=== PATIENT | male | born 2000 | race Hispanic/Latino ===

== ENCOUNTER 2018-10-25 14:30 | Emergency (ER) | payer BC ==
[2018-10-25] MEDS ORDERED: KETOROLAC 30 MG/ML INJ ONE (15:17)
[2018-10-25] MEDS ORDERED: DICYCLOMINE HCL 10 MG CAP ONE (15:17)
--- NOTE | 2018-10-25 16:04 | RAD REPORT ---
EXAM DESCRIPTION: RAD - Chest Pa And Lat (2 Views) - 10/25/2018 3:57 pm CLINICAL HISTORY: PAIN Chest pain. COMPARISON: No comparisons FINDINGS: The lungs are clear. The heart is normal in size. No displaced fractures. IMPRESSION: No acute or concerning finding suspected.
[2018-10-25 16:08] LABS: Urine Blood 1+ (NEG); Urine Glucose NEGATIVE (NEG)
--- NOTE | 2018-10-25 16:12 | ER ---
Nurse's Notes [facility] Name: Hans Munoz Age: 18 yrs Sex: Male : 2000 Arrival Date: 10/25/2018 Time: 14:34 Bed 27 Private MD: Diagnosis: Upper abdominal pain, unspecified;Muscle spasm Presentation: 10/25 14:45 Presenting complaint: Patient states: LLQ pian X 5 days, intermittent sharp stabbing iw pain, denies n/v/d, denies fever, denies urinary s/s. Transition of care: patient was not received from another setting of care. Onset of symptoms was October 20, 2018. Risk Assessment: Do you want to hurt yourself or someone else? Patient reports no desire to harm self or others. Initial Sepsis Screen: Does the patient meet any 2 criteria? No. Patient's initial sepsis screen is negative. Does the patient have a suspected source of infection? No. Patient's initial sepsis screen is negative. Care prior to arrival: None. 14:45 Method Of Arrival: Ambulatory iw 14:45 Acuity: LEX 3 iw Historical: - Allergies: 14:47 No Known Allergies; iw - Home Meds: 14:47 None [Active]; iw - PMHx: 14:47 None; iw - PSHx: 14:47 None; iw - Immunization history:: Adult Immunizations up to date. - Social history:: Smoking status: Patient/guardian denies using tobacco. - Ebola Screening: : Patient negative for fever greater than or equal to 101.5 degrees Fahrenheit, and additional compatible Ebola Virus Disease symptoms Patient denies exposure to infectious person Patient denies travel to an Ebola-affected area in the 21 days before illness onset No symptoms or risks identified at this time. Screenin:23 Abuse screen: Denies threats or abuse. Nutritional screening: No deficits noted. tw2 Tuberculosis screening: No symptoms or risk factors identified. Fall Risk None identified. Assessment: 15:28 General: Appears in no apparent distress. comfortable, Behavior is calm, cooperative. rv Pain: Complains of pain in left upper quadrant. Neuro: Level of Consciousness is awake, alert, obeys commands, Oriented to person, place, time, situation. Cardiovascular: Patient's skin is warm and dry. Respiratory: Airway is patent. GI: Bowel sounds present X 4 quads. Abdomen is tender to palpation in left upper quadrant. : No signs and/or symptoms were reported regarding the genitourinary system. EENT: No signs and/or symptoms were reported regarding the EENT system. Derm: Skin is intact. Musculoskeletal: No signs and/or symptoms reported regarding the musculoskeletal system. Vital Signs: 14:48 BP 104 / 66; Pulse 77; Resp 16; Temp 98.2; Pulse Ox 100% ; Weight 72.57 kg; Height 5 iw ft. 10 in. (177.80 cm); Pain 8/10; 16:26 BP 112 / 68; Pulse 71; Resp 16; Temp 98; Pulse Ox 99% on R/A; rv 14:48 Body Mass Index 22.96 (72.57 kg, 177.80 cm) iw ED Course: 14:34 Patient arrived in ED. mr 14:42 Bed in low position. Call light in reach. Adult w/ patient. tw2 14:47 Triage completed. iw 14:50 Arm band placed on. iw 14:57 Mary Jane Baker [facility]-C [facility]. snw 14:57 Jean Bradley MD is Attending Physician. snw 15:28 Amandeep Ellison RN is Primary Nurse. rv 16:26 No provider procedures requiring assistance completed. Patient did not have IV access rv during this emergency room visit. Administered Medications: 15:20 Drug: TORadol 30 mg Route: IM; Site: right deltoid; tw2 16:27 Follow up: Response: Pain is decreased rv 15:21 Drug: Bentyl 20 mg Route: PO; tw2 16:27 Follow up: Response: No adverse reaction; Pain is decreased rv Outcome: 16:08 Discharge ordered by . snw 16:26 Discharged to home ambulatory. rv 16:26 Condition: good 16:26 Discharge instructions given to patient, Instructed on discharge instructions, follow up and referral plans. medication usage, Demonstrated understanding of instructions, follow-up care, medications, Prescriptions given X 2. 16:27 Patient left the ED. rv Signatures: Mary Jane Baker FNP-C FNP-Myriam Kaley Sims Gillian Carpio RN RN iw Kinsey Reyna RN RN tw2 Amandeep Ellison RN RN rv
--- NOTE | 2018-10-25 16:13 | EDPHYS ---
Physician Documentation [facility] Name: Hans Munoz Age: 18 yrs Sex: Male : 2000 Arrival Date: 10/25/2018 Time: 14:34 Bed 27 Private MD: ED Physician Jean Bradley HPI: 10/25 15:23 This 18 yrs old Male presents to ER via Ambulatory with complaints of snw Abdominal Pain. 15:23 The patient presents with abdominal pain in the left upper quadrant. Onset: The snw symptoms/episode began/occurred gradually, 7 day(s) ago, and became worse and became persistent. The symptoms do not radiate. Associated signs and symptoms: Pertinent negatives: nausea, vomiting, and diarrhea, blood in stools, chest pain. The symptoms are described as crampy, shooting. Severity of pain: At its worst the pain was moderate severe. The patient has not experienced similar symptoms in the past. The patient has not recently seen a physician. Historical: - Allergies: 14:47 No Known Allergies; iw - Home Meds: 14:47 None [Active]; iw - PMHx: 14:47 None; iw - PSHx: 14:47 None; iw - Immunization history:: Adult Immunizations up to date. - Social history:: Smoking status: Patient/guardian denies using tobacco. - Ebola Screening: : Patient negative for fever greater than or equal to 101.5 degrees Fahrenheit, and additional compatible Ebola Virus Disease symptoms Patient denies exposure to infectious person Patient denies travel to an Ebola-affected area in the 21 days before illness onset No symptoms or risks identified at this time. ROS: 15:22 Constitutional: Negative for fever, chills, and weight loss, Eyes: Negative for injury, snw pain, redness, and discharge, ENT: Negative for injury, pain, and discharge, Neck: Negative for injury, pain, and swelling, Cardiovascular: Negative for chest pain, palpitations, and edema, Respiratory: Negative for shortness of breath, cough, wheezing, and pleuritic chest pain, Back: Negative for injury and pain, : Negative for injury, bleeding, discharge, and swelling, MS/Extremity: Negative for injury and deformity, Skin: Negative for injury, rash, and discoloration, Neuro: Negative for headache, weakness, numbness, tingling, and seizure, Psych: Negative for depression, anxiety, suicide ideation, homicidal ideation, and hallucinations. 15:22 Abdomen/GI: Positive for abdominal pain, of the left upper quadrant, Negative for nausea, vomiting, and diarrhea, abdominal distension, anorexia, dysphagia. Exam: 15:15 Constitutional: This is a well developed, well nourished patient who is awake, alert, snw and in no acute distress. Head/Face: Normocephalic, atraumatic. Eyes: Pupils equal round and reactive to light, extra-ocular motions intact. Lids and lashes normal. Conjunctiva and sclera are non-icteric and not injected. Cornea within normal limits. Periorbital areas with no swelling, redness, or edema. ENT: Nares patent. No nasal discharge, no septal abnormalities noted. Tympanic membranes are normal and external auditory canals are clear. Oropharynx with no redness, swelling, or masses, exudates, or evidence of obstruction, uvula midline. Mucous membranes moist. Neck: Trachea midline, no thyromegaly or masses palpated, and no cervical lymphadenopathy. Supple, full range of motion without nuchal rigidity, or vertebral point tenderness. No Meningismus. Chest/axilla: Normal chest wall appearance and motion. Nontender with no deformity. No lesions are appreciated. Cardiovascular: Regular rate and rhythm with a normal S1 and S2. No gallops, murmurs, or rubs. Normal PMI, no JVD. No pulse deficits. Respiratory: Lungs have equal breath sounds bilaterally, clear to auscultation and percussion. No rales, rhonchi or wheezes noted. No increased work of breathing, no retractions or nasal flaring. Back: No spinal tenderness. No costovertebral tenderness. Full range of motion. Skin: Warm, dry with normal turgor. Normal color with no rashes, no lesions, and no evidence of cellulitis. MS/ Extremity: Pulses equal, no cyanosis. Neurovascular intact. Full, normal range of motion. Neuro: Awake and alert, GCS 15, oriented to person, place, time, and situation. Cranial nerves II-XII grossly intact. Motor strength 5/5 in all extremities. Sensory grossly intact. Cerebellar exam normal. Normal gait. Psych: Awake, alert, with orientation to person, place and time. Behavior, mood, and affect are within normal limits. 15:15 Abdomen/GI: Inspection: abdomen appears normal, Bowel sounds: normal, Palpation: abdomen is soft and non-tender. 15:15 : Male external genitalia: normal, cremasteric reflex present right, present left, inguinal hernia to right . Vital Signs: 14:48 BP 104 / 66; Pulse 77; Resp 16; Temp 98.2; Pulse Ox 100% ; Weight 72.57 kg; Height 5 iw ft. 10 in. (177.80 cm); Pain 8/10; 16:26 BP 112 / 68; Pulse 71; Resp 16; Temp 98; Pulse Ox 99% on R/A; rv 14:48 Body Mass Index 22.96 (72.57 kg, 177.80 cm) iw MDM: 14:57 Patient medically screened. snw 16:08 Data reviewed: vital signs, nurses notes. Data interpreted: Pulse oximetry: on room air snw is 100 %. Interpretation: normal. Counseling: I had a detailed discussion with the patient and/or guardian regarding: the historical points, exam findings, and any diagnostic results supporting the discharge/admit diagnosis, radiology results, the need for outpatient follow up, to return to the emergency department if symptoms worsen or persist or if there are any questions or concerns that arise at home. Special discussion: Based on the patient's Hx, exam, and Dx evaluation, there is no indication for emergent surgery or inpatient Tx. It is understood by the patient/guardian that if the Sx's persist or worsen they need to return immediately for re-evaluation. Based on the history and exam findings, there is no indication for further emergent testing or inpatient evaluation. I discussed with the patient/guardian the need to see the primary care provider for further evaluation of the symptoms. 10/25 15:11 Order name: Urine Dipstick--Ancillary (enter results); Complete Time: 16:20 bd 10/25 15:15 Order name: Chest Pa And Lat (2 Views) XRAY snw 10/25 15:15 Order name: EKG; Complete Time: 15:16 snw 10/25 15:15 Order name: EKG - Nurse/Tech; Complete Time: 15:15 snw Administered Medications: 15:20 Drug: TORadol 30 mg Route: IM; Site: right deltoid; tw2 16:27 Follow up: Response: Pain is decreased rv 15:21 Drug: Bentyl 20 mg Route: PO; tw2 16:27 Follow up: Response: No adverse reaction; Pain is decreased rv Disposition: 16:54 Co-signature as Attending Physician, Jean Bradley MD. rn Disposition: 10/25/18 16:08 Discharged to Home. Impression: Upper abdominal pain, unspecified, Muscle spasm. - Condition is Stable. - Discharge Instructions: Abdominal Pain, Adult, Muscle Cramps and Spasms, Muscle Strain, Heat Therapy. - Prescriptions for Bentyl 20 mg Oral Tablet - take 1 tablet by ORAL route every 6 hours As needed; 20 tablet. Diclofenac Sodium 75 mg Oral Tablet Sustained Release - take 1 tablet by ORAL route 2 times per day; 30 tablet. - Work release form, Medication Reconciliation Form, Thank You Letter, Antibiotic Education, Prescription Opioid Use form. - Follow up: Private Physician; When: 2 - 3 days; Reason: Recheck today's complaints, Continuance of care, Re-evaluation by your physician. Follow up: Emergency Department; When: As needed; Reason: Worsening of condition. Signatures: Dispatcher [employer] EDMS Mary Jane Baker, MEDICAL CARE ADMINISTRATOR-C MEDICAL CARE ADMINISTRATOR-Csnw Gillian Carpio RN RN iw Jean Bradley MD MD rn Wise, Tara, RN RN tw2 Amandeep Ellison RN RN rv Corrections: (The following items were deleted from the chart) 16:27 16:08 10/25/2018 16:08 Discharged to Home. Impression: Upper abdominal pain, rv unspecified; Muscle spasm. Condition is Stable. Discharge Instructions: Abdominal Pain, Adult, Muscle Cramps and Spasms, Muscle Strain, Heat Therapy. Prescriptions for Bentyl 20 mg Oral Tablet - take 1 tablet by ORAL route every 6 hours As needed; 20 tablet, Diclofenac Sodium 75 mg Oral Tablet Sustained Release - take 1 tablet by ORAL route 2 times per day; 30 tablet. and Forms are Work release form, Medication Reconciliation Form, Thank You Letter, Antibiotic Education, Prescription Opioid Use. Follow up: Private Physician; When: 2 - 3 days; Reason: Recheck today's complaints, Continuance of care, Re-evaluation by your physician. Follow up: Emergency Department; When: As needed; Reason: Worsening of condition. snw
[2018-10-25 16:14] LABS: Urine Protein NEGATIVE (NEG)
--- NOTE | 2018-10-25 18:24 | EKG ---
Test Date: 2018-10-25 Test Time: 15:14:57 [employer] Supervisor: RV MEASUREMENT RESULTS: Intervals: Rate: 77 WY: 166 QRSD: 94 QT: 352 QTc: 398 [place]: P: 72 WY: 166 QRS: 84 T: 65 INTERPRETIVE STATEMENTS: Normal sinus rhythm Normal ECG Compared to ECG 09/05/2013 13:04:58 No significant changes Electronically Signed On 10-25-18 18:23:31 CDT by Ruslan Leos
== END 2018-10-25 16:27 | disposition home or self-care (01) ==
LOC: ER 14:30
DX: M62.838 Other muscle spasm (principal)
CPT/HCPCS: 71046; 81003; 93005; 96372; 99283

== ENCOUNTER 2024-10-09 03:51 | Emergency (ER) | payer SELFPAY ==
--- OUTSIDE RECORDS SUMMARY | 2024-10-09 03:54 | XMS REPORT | Continuity of Care Document ---
Author Name Unknown Address [address] [facility] [address] [facility] [address] [place] [address] [facility] Address [address] [facility] [place] [address] Care Team Providers Care Uniformer Name Role Phone Pcp, Patient Does Not Have A Primary Care Physic lucy Doctor Unassigned, Dolores Attending Clinician U navailable 2, Adc Lab Attending Clinician Unavailable Junior Calvert MD Attending Clinician JUNIOR CALVERT Attending Clinician Unavailable Allergies, Adverse Reactions, Alerts Allergy Name Allergy Type Status Severity Reaction(s) Onset Date Inactive Date Treating Clinician Comments Source NO KNOWN ALLERGIE S [facility] Social History Social Habit Start Date Stop Date Quantity Comments Source Exposure to SARS-CoV-2 (event) 2022-02-16 00:00:00 2022-02-26 10:53:00 Not sure [facility] Sex Assigned At 2000 00:00:00 2000 00:00:00 [facility] Smoking Status Start Date Stop Date Source Tobacco smoking consumption unknown [facility] Procedures Procedure Date / Time Performed Performing Clinicia n Source SCANNED LAB RESULTS 2022-03-09 06:01:00 Doctor U nassigned, Dolores [facility] Encounters Start Date/Time End Date/Time Encounter Type Admission Type Attending Clinicians Care Facility Care Department Encounter ID Source 2022-03-09 00:00:00 2022-03-09 00:00:00 Orders Only Doctor Unassigned, Dolores [facility] [id number] [facility] 2022-02-26 11:00:00 2022-02-26 11:15:00 Director Of Environmental Services Visit 2, Adc Junior Cline [facility] [id number] [facility] 2022-02-26 11:00:00 2022-02-26 11:00:00 Outpatient R JUNIOR CALVERT [facility] [id number] [facility]
--- NOTE | 2024-10-09 06:26 | RAD REPORT ---
PROCEDURE: US Scrotum CLINICAL INDICATION: The patient is 24 years old and is Male; Testicular pain. TECHNIQUE: Real-time ultrasound of the scrotum with color Doppler and image documentation. COMPARISON: None. FINDINGS: RIGHT TESTICLE: Both testes demonstrate normal internal blood flow and low resistance waveforms, wi thout evidence of torsion. The right testicle measures 3.1 x 4.4 x 2.7 cm. LEFT TESTICLE: The left testicle measures 2.8 x 3.8 x 2.6 cm. EPIDIDYMIDES: Subcentimeter left epididymal head cysts incidentally noted. Relatively hypervascular appearance of the left epididymis. Right epididymis appears unremark able. SCROTUM: Small bilateral hydroceles. IMPRESSION: 1. Relatively hypervascular appearance of the left epididymis, suggesting left epididymitis. 2. No evidence of testicular torsion. Electronically signed by: Ryan Lucia MD 10/09/2024 06:18 AM CDT RP Due to temporary technical issues with the [employer] (PICA) reporting system, reports are being renetta d by the in-house radiologist without review as a courtesy to ensure prompt reporting the interpreting radiologist is fully responsible for the content of the report. Transcribed Date/Time: 10/09/2024 6:25 AM
--- NOTE | 2024-10-09 06:33 | ER ---
Nurse's Notes [facility] Name: Hans Munoz Age: 24 yrs Sex: Male : 2000 Arrival Date: 10/09/2024 Time: 03:51 Bed 20 Private MD: Diagnosis: Epididymitis Presentation: 10/09 04:03 Chief complaint: Patient states: My left testicle is tender with movement. Coronavirus vc1 screen: Client denies travel out of the [place] in the last 14 days. At this time, the client does not indicate any symptoms associated with coronavirus-19. Ebola Screen: Patient negative for fever greater than or equal to 101.5 degrees Fahrenheit, and additional compatible Ebola Virus Disease symptoms Patient denies exposure to infectious person. Patient denies travel to an Ebola-affected area in the 21 days before illness onset. No symptoms or risks identified at this time. Initial Sepsis Screen: Does the patient meet any 2 criteria? No. Patient's initial sepsis screen is negative. Does the patient have a suspected source of infection? No. Patient's initial sepsis screen is negative. Risk Assessment: Do you want to hurt yourself or someone else? Patient reports no desire to harm self or others. Onset of symptoms was October 09, 2024. 04:03 Method Of Arrival: Ambulatory vc1 04:03 Acuity: LEX 4 vc1 Triage Assessment: 04:07 General: Appears in no apparent distress. uncomfortable, Behavior is calm, cooperative, vc1 appropriate for age. Pain: Complains of pain in left testicle Pain does not radiate. Pain currently is 4 out of 10 on a pain scale. Pain: Quality of pain is described as tender. EENT: No deficits noted. No signs and/or symptoms were reported regarding the EENT system. Neuro: Level of Consciousness is awake, alert, obeys commands, Oriented to person, place, time, situation, Appropriate for age. Cardiovascular: Capillary refill < 3 seconds Patient's skin is warm and dry. Respiratory: Airway is patent Respiratory effort is even, unlabored, Respiratory pattern is regular, symmetrical. GI: No deficits noted. No signs and/or symptoms were reported involving the gastrointestinal system. : No deficits noted. No signs and/or symptoms were reported regarding the genitourinary system. Derm: Skin is intact, is healthy with good turgor, Skin is dry, Skin is normal. Musculoskeletal: Circulation, motion, and sensation intact. Range of motion: intact in all extremities. Historical: - Allergies: 04:06 No Known Allergies; vc1 - Home Meds: 04:06 None [Active]; vc1 - PMHx: 04:06 None; vc1 - PSHx: 04:06 None; vc1 - Immunization history:: Client reports receiving the 2nd dose of the Covid vaccine. - Infectious Disease History:: Denies. - Social history:: Smoking status: Patient denies any tobacco usage or history of. Screenin:09 [facility] ED Fall Risk Assessment (Adult) History of falling in the last 3 months, ss12 including since admission No falls in past 3 months (0 pts) Confusion or Disorientation No (0 pts). [facility] ED Fall Risk Assessment (Adult) Intoxicated or Sedated No (0 pts) Impaired Gait No (0 pts) Mobility Assist Device Used No (0 pt) Altered Elimination Score/Fall Risk Level 0 - 2 = Low Risk Oriented to surroundings, Maintained a safe environment, Educated pt \T\ family on fall prevention, incl call for assistance when getting out of bed, Assessed \T\ reinforced patient's understanding of fall precautions. Abuse screen: Denies threats or abuse. Denies injuries from another. Nutritional screening: No deficits noted. Tuberculosis screening: No symptoms or risk factors identified. Assessment: 04:10 General: Appears in no apparent distress. comfortable, Behavior is calm, cooperative, ss12 quiet. Pain: Complains of pain in groin and describe as pressure than pain. Neuro: No deficits noted. Level of Consciousness is awake, alert, obeys commands, Oriented to person, place, time, situation. Cardiovascular: No deficits noted. Denies nausea, vomiting. Respiratory: No deficits noted. Airway is patent Respiratory effort is even, unlabored, Respiratory pattern is regular, symmetrical. GI: No deficits noted. No signs and/or symptoms were reported involving the gastrointestinal system. : No deficits noted. No signs and/or symptoms were reported regarding the genitourinary system. EENT: No deficits noted. No signs and/or symptoms were reported regarding the EENT system. Derm: No deficits noted. No signs and/or symptoms reported regarding the dermatologic system. Skin is intact, Skin is dry, Skin is pink, warm \T\ dry. normal. Musculoskeletal: No deficits noted. No signs and/or symptoms reported regarding the musculoskeletal system. 05:15 Reassessment: Patient appears in no apparent distress at this time. Patient and/or ss12 family updated on plan of care and expected duration. Pain level reassessed. Patient is alert, oriented x 3, equal unlabored respirations, skin warm/dry/pink. 06:06 Reassessment: Patient appears in no apparent distress at this time. Patient and/or ss12 family updated on plan of care and expected duration. Pain level reassessed. Patient is alert, oriented x 3, equal unlabored respirations, skin warm/dry/pink. Vital Signs: 04:03 BP 130 / 84; Pulse 63; Resp 16; Temp 98.9; Pulse Ox 100% ; Weight 90.72 kg; Height 5 vc1 ft. 10 in. ; Pain 4/10; 05:00 BP 115 / 81; Pulse 81; Resp 16 S; Pulse Ox 98% on R/A; ss12 06:00 BP 94 / 55; Pulse 71; Resp 16 S; Pulse Ox 97% on R/A; ss12 04:03 Body Mass Index 28.70 (90.72 kg, 177.8 cm) vc1 04:03 Pain Scale: Adult vc1 ED Course: 03:53 Patient arrived in ED. jj6 03:54 Rey Fabian DO is Attending Physician. ms3 04:03 Shaylee June, RN is Primary Nurse. ss12 04:06 Triage completed. vc1 04:07 Arm band placed on right wrist. vc1 04:52 Scrotum Testicles US In Process Unspecified. EDMS 05:10 Patient has correct armband on for positive identification. Provided Education on: plan ss12 of care. 05:10 No provider procedures requiring assistance completed. ss12 06:32 Calvin Drew DO is Referral Physician. ms3 07:07 Patient did not have IV access during this emergency room visit. ss12 Administered Medications: 06:45 Drug: Rocephin (cefTRIAXone) IM 500 mg IM once Route: IM; Site: right vastus lateralis; ss12 07:04 Follow up: Response: No adverse reaction ss12 06:45 Drug: LevOfloxacin PO 500 mg PO once Route: PO; ss12 07:04 Follow up: Response: No adverse reaction ss12 Medication: 05:10 VIS not applicable for this client. ss12 Outcome: 06:33 Discharge ordered by . ms3 07:07 Discharged to home ambulatory, ss12 07:07 Condition: stable 07:07 Discharge instructions given to patient, Instructed on discharge instructions, follow up and referral plans. Demonstrated understanding of instructions, follow-up care, Prescriptions given X 1, 07:07 Patient left the ED. 12 Signatures: Dispatcher [employer] EDMS Rey Fabian DO DO ms3 Malu Almendarez jj6 Shirin Stanley, RN RN vc1 Shaylee June, RN RN ss12
--- NOTE | 2024-10-09 06:33 | EDPHYS ---
Physician Documentation [facility] Name: Hans Munoz Age: 24 yrs Sex: Male : 2000 Arrival Date: 10/09/2024 Time: 03:51 Bed 20 Private MD: ED Physician Rey Fabian HPI: 10/09 04:15 This 24 yrs old Male presents to ER via Ambulatory with complaints of ms3 Testicular Pain. 04:15 24-year-old male with no past medical history presents to the emergency department for ms3 left testicular tenderness has been ongoing for 1 week. Patient states tonight the testicle became more tender. Patient states that discomfort is a 5/10. Patient denies nausea, vomiting, fever, chills. Patient does endorse urinary frequency.. Historical: - Allergies: 04:06 No Known Allergies; vc1 - Home Meds: 04:06 None [Active]; vc1 - PMHx: 04:06 None; vc1 - PSHx: 04:06 None; vc1 - Immunization history:: Client reports receiving the 2nd dose of the Covid vaccine. - Infectious Disease History:: Denies. - Social history:: Smoking status: Patient denies any tobacco usage or history of. ROS: 04:15 Constitutional: Negative for fever, and chills. Cardiovascular: Negative for chest ms3 pain, and palpitations. Respiratory: Negative for shortness of breath, cough, wheezing, and pleuritic chest pain, Abdomen/GI: Negative for abdominal pain, nausea, vomiting, diarrhea, and constipation, 04:15 Skin: Negative for injury, rash, and discoloration, 04:15 : Positive for urinary frequency, testicular pain Exam: 04:15 Constitutional: This is a well developed, well nourished patient who is awake, alert, ms3 and in no acute distress. Cardiovascular: Regular rate and rhythm with a normal S1 and S2. No gallops, murmurs, or rubs. Normal PMI, no JVD. No pulse deficits. Respiratory: Lungs have equal breath sounds bilaterally, clear to auscultation and percussion. No rales, rhonchi or wheezes noted. No increased work of breathing, no retractions or nasal flaring. Abdomen/GI: Soft, non-tender, with normal bowel sounds. No distension or tympany. No guarding or rebound. No evidence of tenderness throughout. 04:15 : Male external genitalia: Circumcision noted. cremasteric reflex present right, present left, penile discharge, is absent, swelling: is not appreciated, tenderness, of the left testicle is noted, of the epididymis area, that is mild, Vital Signs: 04:03 BP 130 / 84; Pulse 63; Resp 16; Temp 98.9; Pulse Ox 100% ; Weight 90.72 kg; Height 5 vc1 ft. 10 in. ; Pain 4/10; 05:00 BP 115 / 81; Pulse 81; Resp 16 S; Pulse Ox 98% on R/A; ss12 06:00 BP 94 / 55; Pulse 71; Resp 16 S; Pulse Ox 97% on R/A; ss12 04:03 Body Mass Index 28.70 (90.72 kg, 177.8 cm) vc1 04:03 Pain Scale: Adult vc1 MDM: 03:54 Medical Screening Exam initiated ms3 04:15 Differential diagnosis: UTI, Sexually-transmitted infection. ms3 06:34 Data reviewed: vital signs, nurses notes, lab test result(s), radiologic studies, ms3 ultrasound, and as a result, I will discharge patient. I considered the following discharge prescriptions or medication management in the emergency department Medications were administered in the Emergency Department. See MAR. Counseling: I had a detailed discussion with the patient and/or guardian regarding the historical points, exam findings, and any diagnostic results supporting the discharge/admit diagnosis, lab results, radiology results, the need for outpatient follow up, to return to the emergency department if symptoms worsen or persist or if there are any questions or concerns that arise at home. Special discussion: I discussed with the patient/guardian in detail that at this point there is no indication for admission to the hospital. It is understood, however, that if the symptoms persist or worsen the patient needs to return immediately for re-evaluation. ED course: Discussed treatment plan with patient. Patient understands agrees with plan. Patient to follow-up Dr. rDew in 2 to 3 days. All questions were answered. Return precautions discussed include worsening symptoms, or other concerns. 10/09 04:06 Order name: GC (Tomas/Chl) Probe CX/URE (Do not order if pt is under 13, order Culture ms3 instead) 10/09 03:54 Order name: Scrotum Testicles US; Complete Time: 06:28 ms3 Administered Medications: 06:45 Drug: Rocephin (cefTRIAXone) IM 500 mg IM once Route: IM; Site: right vastus lateralis; 12 07:04 Follow up: Response: No adverse reaction 12 06:45 Drug: LevOfloxacin PO 500 mg PO once Route: PO; ss12 07:04 Follow up: Response: No adverse reaction ss12 Disposition Summary: 10/09/24 06:33 Discharge Ordered Notes: Location: Home ms3 Condition: Stable ms3 Diagnosis - Epididymitis ms3 Followup: ms3 - With: Calvin Drew DO - When: 2 - 3 days - Reason: Recheck today's complaints Discharge Instructions: - Discharge Summary Sheet ms3 - Epididymitis ms3 - Form - Return To Work 12 Forms: - Work release form bd - Medication Reconciliation Form ms3 - Antibiotic Education ms3 - Prescription Opioid Use ms3 - Patient Portal Instructions ms3 - Leadership Thank You Letter ms3 - Family Work Release 12 Prescriptions: - levofloxacin 500 mg Oral tablet - take 1 tablet ORAL route once daily for 7 days Begin on 10/10/2024; 9 tablet; ms3 Refills: 0, Product Selection Permitted Signatures: Dispatcher [employer] Rey Looney DO DO ms3 Shirin Stanley RN RN vc1 Shaylee June RN RN ss12
[2024-10-09] MEDS ORDERED: levoFLOXacin 250 MG TAB ONE (06:45)
[2024-10-09] MEDS ORDERED: CEFTRIAXONE 500 MG/VIAL ONE (06:46)
[2024-10-09] MEDS ORDERED: WATER FOR INJ,STERILE 10 ML ONE (06:47)
[2024-10-09 07:27] VITALS: TEMP 98.9
[2024-10-09 07:30] VITALS: BP 94/55; O2SAT 97
[2024-10-12 17:57] LABS: C.trachomatis RNA,TMA Not Detected (Not Detected); N.gonorrhoeae RNA,TMA Not Detected (Not Detected)
== END 2024-10-09 07:07 | disposition home or self-care (01) ==
LOC: ER 03:51
DX: N45.1 Epididymitis (principal)
CPT/HCPCS: 76870; 87490; 87590; 96372; 99284; J0696